=== PATIENT | female | born 1970 | race Caucasian/White ===

== ENCOUNTER 2017-12-08 08:52 | Emergency (ER) | payer MEDICAID ==
[~2017-12-08] VITALS: Ht 144.8 cm; Wt 50.1 kg
[2017-12-08 08:54] VITALS: BP 158/105
== END 2017-12-08 09:51 | disposition home or self-care (01) ==
LOC: ED 09:40
DX: I10 Essential (primary) hypertension (principal)
CPT/HCPCS: 99283